=== PATIENT | female | born 1990 | race Caucasian/White ===

== ENCOUNTER → 2021-03-07 | Outpatient (CLI) | payer OTHER ==
[2021-03-07 17:53] LABS: HEMATOCRIT 39.1 % (36.0-47.0); HEMOGLOBIN 12.9 g/dl (12.0-15.5); MEAN CORPUSCULAR HEMOGLOBIN 30.3 pg (27.0-33.0); MEAN CORPUSCULAR VOLUME 91.8 fl (80.0-96.0); PLATELET COUNT, AUTOMATED 283 10^3/uL (150-450); RED BLOOD COUNT 4.26 10^6/uL (4.00-5.40)
[2021-03-07 19:24] LABS: GC DNA AMPLIFICATION NEGATIVE (NEGATIVE)
[2021-03-07 21:15] LABS: HEPATITIS C VIRUS ABY INDEX 0.1 INDEX (<0.8)
[2021-03-14 08:44] LABS: HIV 1&2 SCREEN CENTAUR REACTIVE (NEGATIVE)
== END ==
LOC: M PLALAB 15:44
PROVIDERS: ATTEND Advanced Practice Midwife
DX: Z34.81 Encounter for supervision of other normal pregnancy, first trimester (principal); Z3A.00 Weeks of gestation of pregnancy not specified
CPT/HCPCS: 36415; 85027; 86702; 86762; 86780; 86803; 86850; 86900; 86901; 87086; 87340; 87389; 87491; 87591; G0463

== ENCOUNTER → 2021-03-17 | Outpatient (CLI) | payer OTHER ==
--- NOTE | 2021-03-17 14:40 | REP ---
INDICATION: TWINS/DATING. COMPARISON: None. TECHNIQUE: Transabdominal imaging for a twin gestation. FINDINGS: Transabdominal imaging with the bladder is acoustic window shows a twin gestation. Gestational sac is in the body and fundus of the uterus with twin a presenting twin variable position and inferior. There is a yolk sac visible. Placenta is posterior grade 0. No previa. Visually amniotic fluid volume is normal. Thin membrane is identified. biometry: TWIN A: BPD: 2.1 cm, 13 week 2 day HC: 7.9 cm, 13 week 3 day AC: 5.9 cm, 12 week 5 day FL: 1 cm, 13 weeks 0 day HL: 1.1 cm, 13 week 0 day This gives average ultrasound age 13 weeks 1 day. heart rate 150 and regular. TWIN B: Twin B is variable in presentation and superior. A yolk sac is seen. There is an anterior placenta with grade 0 maturation. At placenta appears fused at the fundus and wraparound anterior to posterior. No previa. Thin membrane seen. Normal amniotic fluid volume. BPD: 2 cm, 13 week 1 day HC: 7.5 cm, 13 week 1 day AC: 5.8 cm, 12 week 5 day FL: 1.1 cm, 13 week 1 day HL: 1.1 cm, 12 weeks 6 day This gives average ultrasound age of 13 weeks. The heart rate 158 and regular The closed cervix is 3.9 cm. IMPRESSION: 1. Twin gestation with twin a variable position, inferior and twin B variable positions superior both with adequate amniotic fluid around the. There is a posterior placenta for twin A and anterior placenta for twin B which appears joined superiorly. Thin membrane is noted. Accordingly this is a monochorionic/diamniotic twin . 2. Twin A 13 weeks 1 day, twin B 13 weeks and by established the EDC she is 13 weeks with EDC 09/22/2021. <Electronically signed by Gunner Smith > 03/17/21 2024
== END ==
LOC: M WHC 12:40
PROVIDERS: ATTEND Advanced Practice Midwife
DX: O30.099 Twin pregnancy, unable to determine number of placenta and number of amniotic sacs, unspecified trimester (principal); Z3A.13 13 weeks gestation of pregnancy

== ENCOUNTER → 2021-04-06 | Outpatient (CLI) | payer OTHER | LOC: M WHC 10:09 | PROVIDERS: ATTEND Obstetrics & Gynecology | DX: O30.032 Twin pregnancy, monochorionic/diamniotic, second trimester (principal) ==

== ENCOUNTER → 2021-05-03 | Outpatient (CLI) | payer OTHER ==
--- NOTE | 2021-05-03 10:46 | REP ---
INDICATION: ANATOMY/TWINS COMPARISON: 03/17/2021 TECHNIQUE: Transabdominal obstetrical ultrasound with color Doppler evaluation. FINDINGS: Examination demonstrates monochorionic/diamniotic twin gestation. Cervix measures 3.6 cm in length and appears closed. Concordant growth is noted. Gestational age by LMP at 19 weeks 5 days with estimated date of delivery 09/22/2021. TWIN A: Twin A identified in cephalic presentation along the maternal left side. Placenta is noted posterior/right lateral and grade 0 without evidence for placenta previa or abruption. motion is appreciated. Amniotic fluid volume is normal. FHR equals 140 beats per minute. BPD: 4.7 cm corresponding to 20 weeks; 2 days HC: 17.5 cm corresponding to 20 weeks; 0 days AC: 14.0 cm corresponding to 19 weeks; 3 days FL: 3.3 cm corresponding to 20 weeks; 2 days HL: 3.1 cm corresponding to 20 weeks; 3 days HC/AC ratio: 1.25 Gestational age by current measurements: 20 weeks 0 days. Estimated weight 316 grams (52nd percentile). Limited anatomical assessment demonstrates small bilateral choroid plexus cysts and incomplete evaluation of the heart/ventricular outflow tracts. Remainder of the anatomical assessment is complete and normal. TWIN B: Twin B identified in breech presentation along the maternal right side. Placenta is noted posterior/right lateral and grade 0 without evidence for placenta previa or abruption. motion is appreciated. Amniotic fluid volume is normal. FHR equals 135 beats per minute. BPD: 4.5 cm corresponding to 19 weeks; 3 days HC: 17.1 cm corresponding to 19 weeks; 5 days AC: 14.1 cm corresponding to 19 weeks; 3 days FL: 3.1 cm corresponding to 19 weeks; 3 days HL: 3.2 cm corresponding to 20 weeks; 5 days HC/AC ratio: 1.21 Gestational age by current measurements: 19 weeks 5 days. Estimated weight 295 grams (33rd percentile). Limited anatomical assessment demonstrates small bilateral choroid plexus cysts. Remainder of the anatomical assessment is complete and normal. IMPRESSION: Monochorionic diamniotic twin gestation demonstrating appropriate concordant growth. Anatomical limitations as noted above may warrant follow-up. <Electronically signed by Daniel Irvin > 05/03/21 [id number]
== END ==
LOC: M WHC 08:26
PROVIDERS: ATTEND Obstetrics & Gynecology
DX: O30.032 Twin pregnancy, monochorionic/diamniotic, second trimester (principal)

== ENCOUNTER → 2021-06-02 | Outpatient (CLI) | payer OTHER ==
--- NOTE | 2021-06-02 15:44 | REP ---
INDICATION: F/U ANATOMY TWIN Twin gestation. COMPARISON: None. TECHNIQUE: Transabdominal obstetrical ultrasound with color Doppler evaluation. FINDINGS: Examination demonstrates monochorionic diamniotic twin gestation. Cervix measures 4.5 cm cm in length and appears closed. Gestational age by LMP at 24 weeks 0 days with estimated date of delivery 09/22/2021. TWIN A: Twin A identified in cephalic presentation along the maternal left side. Placenta is noted posterior/fundal and grade 0 without evidence for placenta previa or abruption. motion is appreciated. Amniotic fluid volume is normal and the deepest pocket measures 6.1 cm. FHR equals 174 beats per minute. BPD: 6.0 cm weeks; 24 weeks 3 days days HC: 22.6 cm weeks; 24 weeks 4 days days AC: 19.2 cm weeks; 24 weeks 0 days days FL: 4.5 cm weeks; 24 weeks 5 days days HL: 4.1 cm weeks; 25 weeks 0 days days HC/AC ratio: 1.17 Gestational age by current measurements: 24 weeks 4 days. Estimated weight 681 grams (55th percentile). Limited anatomical assessment demonstrates normal structures including heart/ventricular outflow tracts. Previous choroid plexus cyst has resolved. TWIN B: Twin B identified in breech presentation along the maternal right side. Placenta is noted posterior/fundal and grade 0 without evidence for placenta previa or abruption. motion is appreciated. Amniotic fluid volume is normal and the deepest pocket measures 5.2 cm. FHR equals 156 beats per minute. BPD: 5.8 cm weeks; 23 weeks 6 days days HC: 21.7 cm weeks; 23 weeks 5 days days AC: 19.5 cm weeks; 24 weeks 1 day days FL: 4.4 cm weeks; 24 weeks 4 days days HL: 4.2 cm weeks; 25 weeks 1 day days HC/AC ratio: 1.11 Gestational age by current measurements: 24 weeks 2 days. Estimated weight 675 grams (53rd percentile). Limited anatomical assessment demonstrates normal structures. Previous choroid plexus cyst has resolved. IMPRESSION: Monochorionic diamniotic twin gestation demonstrating appropriate concordant growth. No gross abnormalities are identified. <Electronically signed by Daniel Irivn > 06/02/21 0122
== END ==
LOC: M WHC 13:54
PROVIDERS: ATTEND Specialist
DX: O30.032 Twin pregnancy, monochorionic/diamniotic, second trimester (principal); Z3A.24 24 weeks gestation of pregnancy
CPT/HCPCS: 76812; 76816; 90471; 90686; G0463

== ENCOUNTER → 2021-06-15 | Outpatient (CLI) | payer OTHER ==
[2021-06-15 12:24] LABS: HEMATOCRIT 30.5 % (36.0-47.0); MEAN CORPUSCULAR HEMOGLOBIN 30.7 pg (27.0-33.0); MEAN CORPUSCULAR HGB CONC 32.8 g/dl (32.0-36.5); MEAN CORPUSCULAR VOLUME 93.6 fl (80.0-96.0); PLATELET COUNT, AUTOMATED 265 10^3/uL (150-450); RED BLOOD COUNT 3.26 10^6/uL (4.00-5.40); WHITE BLOOD COUNT 10.2 10^3/uL (4.0-10.0)
== END ==
LOC: M PLALAB 09:12
PROVIDERS: ATTEND Advanced Practice Midwife
DX: O30.032 Twin pregnancy, monochorionic/diamniotic, second trimester (principal); Z3A.00 Weeks of gestation of pregnancy not specified
CPT/HCPCS: 36415; 82950; 85027; 86850; 86900; 86901; G0463

== ENCOUNTER → 2021-07-05 | Outpatient (CLI) | payer OTHER ==
--- NOTE | 2021-07-05 11:12 | REP ---
INDICATION: GROWTH TWINS, SECOND TRIMESTER COMPARISON: 06/02/2021 FINDINGS: Examination demonstrates monochorionic diamniotic twin gestation. Cervix measures 4.0 cm in length and appears closed. Concordant growth is noted. Gestational age by LMP at 28 weeks 5 days with estimated date of delivery 09/22/2021. TWIN A: Twin A identified in cephalic presentation along the maternal left side. Placenta is noted posterior and grade 1 without evidence for placenta previa or abruption. motion is appreciated. Amniotic fluid volume is normal and the deepest pocket measures 5.3 cm. FHR equals 138 beats per minute. BPD: 7.7 cm weeks; 30 weeks 5 days days HC: 28.0 cm weeks; 30 weeks 4 days days AC: 25.5 cm weeks; 29 weeks 5 days days FL: 5.5 cm weeks; 29 weeks 0 days days HL: 4.9 cm weeks; 28 weeks 6 days days HC/AC ratio: 1.10 Gestational age by current measurements: 29 weeks 6 days. Estimated weight 1428 grams (72nd percentile). Limited anatomical assessment without obvious abnormality. TWIN B: Twin B identified in breech presentation along the maternal right side. Placenta is noted posterior and grade 1 without evidence for placenta previa or abruption. motion is appreciated. Amniotic fluid volume is normal and the deepest pocket measures 4.6 cm. FHR equals 127 beats per minute. BPD: 7.0 cm weeks; 28 weeks 0 days days HC: 26.4 cm weeks; 28 weeks 5 days days AC: 25.9 cm weeks; 30 weeks 1 day days FL: 5.4 cm weeks; 28 weeks 5 days days HL: 5.0 cm weeks; 29 weeks 2 days days HC/AC ratio: 1.02 Gestational age by current measurements: 29 weeks 0 days. Estimated weight 1378 grams (61st percentile). Limited anatomical assessment without obvious abnormality. IMPRESSION: Monochorionic-diamniotic twin gestation demonstrating appropriate concordant growth. No gross abnormalities are identified. <Electronically signed by Daniel Irvin > 07/05/21 [id number]
== END ==
LOC: M WHC 09:23
PROVIDERS: ATTEND Advanced Practice Midwife
DX: Z36.9 Encounter for antenatal screening, unspecified (principal); O30.032 Twin pregnancy, monochorionic/diamniotic, second trimester; Z3A.29 29 weeks gestation of pregnancy

== ENCOUNTER → 2021-07-26 | Outpatient (CLI) | payer OTHER ==
--- NOTE | 2021-07-26 13:49 | REP ---
INDICATION: GROWTH TWINS COMPARISON: 07/05/2021 TECHNIQUE: Transabdominal obstetrical ultrasound with color Doppler evaluation. FINDINGS: Examination demonstrates monochorionic-diamniotic live intrauterine . Selected gestational age: 31 weeks 5 days with estimated date of delivery 09/22/2021. Cervix appears closed. TWIN A: Cephalic presentation towards left side of the uterus. heart rate equals 130 beats per minute. Placenta noted posteriorly. Amniotic fluid volume deepest pocket: 6.8 cm Estimated weight by biometric measurements 1852 g 43rd percentile Biophysical profile score: 8/8 Umbilical artery SD ratio: 3.53 (1.86-3.90) TWIN B: Cephalic towards right side of the uterus. heart rate equals 144 beats per minute. Placenta noted posterior. Amniotic fluid volume deepest pocket: 5.2 cm Estimated weight by biometric measurements 1737 g 26 percentile Biophysical profile score: 8/8 Umbilical artery SD ratio: 3.53 (1.86-3.90) IMPRESSION: Twin gestation demonstrating appropriate concordant interval growth. No gross abnormalities are identified. Biophysical profile score is 8/8 for both fetuses. <Electronically signed by Daniel Irvin > 07/26/21 [id number]
== END ==
LOC: M WHC 09:20
PROVIDERS: ATTEND Advanced Practice Midwife
DX: O30.032 Twin pregnancy, monochorionic/diamniotic, second trimester (principal)

== ENCOUNTER 2021-08-05 15:26 | Inpatient (IN) | payer OTHER ==
[~2021-08-05] VITALS: Ht 162.6 cm; Wt 73.6 kg
[2021-08-05] MEDS ORDERED: LIDOCAINE 2% 100MG/5ML SDV (FOR ANES.) As Ordered ONE (15:47)
[2021-08-05] MEDS ORDERED: propofoL 200 MG/20 ML VIAL As Ordered ONE ×2 (15:47→16:12)
[2021-08-05] MEDS ORDERED: MIDAZOLAM INJ 2MG/2ML VIAL (J2250 PER 1MG) As Ordered ONE (15:47)
[2021-08-05] MEDS ORDERED: fentaNYL 100 MCG/2 ML INJECTION As Ordered ONE (15:47)
[2021-08-05] MEDS ORDERED: OXYTOCIN INJ 10 UNITS/ML VIAL (J2590) As Ordered ONE (15:47)
[2021-08-05] MEDS ORDERED: SUCCINYLCHOLINE 100 MG/5 ML SYRINGE (J0330) As Ordered ONE (15:47)
[2021-08-05] MEDS ORDERED: ONDANSETRON 4MG/2ML VIAL As Ordered ONE (15:48)
[2021-08-05] MEDS ORDERED: dexameTHASONE 4 MG/ML 1ML VIAL (J1100 PER 1MG) As Ordered ONE (15:48)
[2021-08-05] MEDS ORDERED: ROCURONIUM BROMIDE 50 MG/5 ML VIAL As Ordered ONE (15:50)
[2021-08-05] MEDS ORDERED: CLINDAMYCIN 900 MG/50 ML PREMIX BAG As Ordered ONE (15:50)
[2021-08-05] MEDS ORDERED: ACETAMINOPHEN 1000MG 100ML IV BTL (OFIRMEV) (J0131 PER 10MG) As Ordered ONE (16:03)
[2021-08-05] MEDS ORDERED: BUPIVACAINE HCL 0.25% 10ML VIAL As Ordered ONE (16:04)
[2021-08-05] MEDS ORDERED: KETOROLAC 60MG 2ML VIAL As Ordered ONE (16:04)
[2021-08-05] MEDS ORDERED: SUGAMMADEX SODIUM 500 MG/5 ML VIAL (BRIDION) As Ordered ONE (16:09)
[2021-08-05 16:13] LABS: CORD GAS HCO3 V 25.8 MEQ/L; CORD GAS O2 SAT V 64.7 %; CORD GAS PCO2 V 49.2 mmHg; CORD GAS PH V 7.337 UNITS; CORD GAS SBC V 22.5 MEQ/L; CORD GAS TCO2 V 27.3 MEQ/L
[2021-08-05 16:14] LABS: CORD GAS ABE A -2.5; CORD GAS HCO3 A 24.5 MEQ/L; CORD GAS O2 SAT A 64.4 %; CORD GAS PCO2 A 49.3 mmHg; CORD GAS PH A 7.314 UNITS; CORD GAS PO2 A 26.7 mmHg; CORD GAS SBC A 21.3 MEQ/L
[2021-08-05] MEDS ORDERED: KETOROLAC 30 MG/ML 1ML VIAL IV PRN (16:18)
[2021-08-05] MEDS ORDERED: OXYTOCIN 30 UNITS IN 0.9% NaCl 500ML IV BAG (J2590) As Ordered ONE (16:39)
[2021-08-05] MEDS ORDERED: METOCLOPRAMIDE INJ 10MG/2ML VIAL (J2765 PER 1) As Ordered ONE (16:43)
[2021-08-05] MEDS ORDERED: HYDROMORPHONE HCL 0.5 MG/ 0.5 ML SYRINGE (J1170 PER 1) As Ordered ONE ×2 (16:55→17:18)
[2021-08-05] MEDS ORDERED: SIMETHICONE 80MG CHEW TAB PO PRN (17:20)
[2021-08-05] MEDS ORDERED: MEASLES,MUMPS,RUBELLA VACCINE INJ (MMR-II) (90707) SC SCH (17:20)
[2021-08-05] MEDS ORDERED: fentaNYL 100 MCG/2 ML INJECTION IV PRN (17:20)
[2021-08-05] MEDS ORDERED: NS 1,000 ML IV SCH (17:20)
[2021-08-05] MEDS ORDERED: TRANEXAMIC ACID INJection 1,000 MG in NS 100 ML IV PRN (17:20)
[2021-08-05] MEDS ORDERED: METHYLERGONOVINE MALEATE 0.2 MG/ML VIAL (J2210) IM PRN (17:20)
[2021-08-05] MEDS ORDERED: oxyCODONE 5MG TAB PO PRN (17:20)
[2021-08-05] MEDS ORDERED: MORPHINE 1MG/ML IN 0.9% NACL 100ML IV BAG IV PRN (17:20)
[2021-08-05] MEDS ORDERED: RHOGAM 300 MCG (1500 IU) INJ (J2790) IM SCH (17:20)
[2021-08-05] MEDS ORDERED: ACETAMINOPHEN 500 MG TAB PO PRN (17:20)
[2021-08-05] MEDS ORDERED: OXYTOCIN DRIP 30 UNITS in IV 1 EA IV SCH (17:20)
[2021-08-05] MEDS ORDERED: ONDANSETRON 4MG/2ML VIAL IV PRN (17:20)
[2021-08-05] MEDS ORDERED: NALOXONE INJ 0.4MG/1ML VIAL (J2310 PER 1MG) IV PRN (17:20)
[2021-08-05] MEDS ORDERED: EPIDURAL/PCA KEYS XX PRN (17:20)
[2021-08-05] MEDS ORDERED: diphenhydrAMINE 50MG/ML VIAL (J1200) IV PRN (17:20)
[2021-08-05 18:15] LABS: CORD GAS ABE A -18.1; CORD GAS HCO3 A 11.4 MEQ/L; CORD GAS HCO3 V 18.6 MEQ/L; CORD GAS O2 SAT A 97.3 %; CORD GAS O2 SAT V 99.7 %; CORD GAS PCO2 A 47.7 mmHg; CORD GAS PO2 A 108.6 mmHg; CORD GAS PO2 V 208.5 mmHg; CORD GAS SBC A 10.1 MEQ/L; CORD GAS SBC V 18.6 MEQ/L; CORD GAS TCO2 A 12.9 MEQ/L; CORD GAS TCO2 V 19.8 MEQ/L
[2021-08-05 18:16] LABS: CORD GAS PH A 6.998 UNITS
[2021-08-05 18:17] LABS: CORD GAS PH V 7.308 UNITS
[2021-08-05 19:05] VITALS: BP 131/73
[2021-08-05 19:35] VITALS: BP 117/65
[2021-08-05 21:35] VITALS: BP 117/67
[2021-08-05] MEDS: DOCUSATE SODIUM 100MG CAPSULE PO SCH (21:59)
[2021-08-05] MEDS: KETOROLAC 30 MG/ML 1ML VIAL IV SCH (22:02)
[2021-08-05] MEDS: ceFAZolin SOD 2 GM in IV 1 EA IV SCH (22:02)
[2021-08-05 22:35] VITALS: BP 120/64
[2021-08-05 23:35] VITALS: BP 117/66
[2021-08-06 00:35] VITALS: BP 112/64
[2021-08-06 02:00] VITALS: BP 110/60
[2021-08-06] MEDS: KETOROLAC 30 MG/ML 1ML VIAL IV SCH ×2 (03:56→09:58)
[2021-08-06 06:00] VITALS: BP 107/60
[2021-08-06] MEDS: ceFAZolin SOD 2 GM in IV 1 EA IV SCH ×2 (06:06→13:52)
[2021-08-06] MEDS: DOCUSATE SODIUM 100MG CAPSULE PO SCH ×2 (08:41→21:58)
[2021-08-06] MEDS: PRENATAL VITAMINS CHEWABLE TABLET PO SCH (08:42)
[2021-08-06 08:43] LABS: HEMATOCRIT 28.5 % (36.0-47.0); HEMOGLOBIN 9.4 g/dl (12.0-15.5); MEAN CORPUSCULAR HEMOGLOBIN 31.6 pg (27.0-33.0); PLATELET COUNT, AUTOMATED 191 10^3/uL (150-450); RED BLOOD COUNT 2.97 10^6/uL (4.00-5.40); WHITE BLOOD COUNT 14.4 10^3/uL (4.0-10.0)
[2021-08-06 10:00] VITALS: BP 126/77
[2021-08-06] MEDS: ONDANSETRON 4MG/2ML VIAL IV PRN ×2 (11:24→20:39)
[2021-08-06 12:23] LABS: THYROID STIMULATING HORMONE 4.13 uIU/ML (0.358-3.740); THYROXINE (T4) 15.9 UG/DL (4.5-12.0)
[2021-08-06] MEDS: PERCOCET 5MG/325MG TAB PO PRN ×2 (13:26→20:51)
[2021-08-06] MEDS: IBUPROFEN 800 MG TAB PO SCH (17:52)
[2021-08-06 18:02] VITALS: BP 123/76
[2021-08-06 22:00] VITALS: BP 127/70
[2021-08-06] MEDS ORDERED: ceFAZolin SOD 2 GM in IV 1 EA IV ONE (22:00)
[2021-08-07 02:00] VITALS: BP 136/84
[2021-08-07] MEDS: IBUPROFEN 800 MG TAB PO SCH ×2 (02:15→09:30)
[2021-08-07] MEDS: PERCOCET 5MG/325MG TAB PO PRN ×2 (03:18→12:14)
[2021-08-07 06:00] VITALS: BP 127/74
[2021-08-07] MEDS: PRENATAL VITAMINS CHEWABLE TABLET PO SCH (08:58)
[2021-08-07] MEDS: DOCUSATE SODIUM 100MG CAPSULE PO SCH (08:58)
[2021-08-07 10:00] VITALS: BP 129/73
[2021-08-07] MEDS: ONDANSETRON 4MG/2ML VIAL IV PRN (12:14)
[2021-08-07] MEDS ORDERED: PERCOCET PO (14:14)
[2021-08-07] MEDS ORDERED: IBUP80TA PO (14:14)
[2021-08-07] MEDS ORDERED: COLA100C5 PO (14:14)
[2021-08-07] MEDS ORDERED: ZOFR4TAB16 PO (14:14)
[2021-08-10 11:35] LABS: DRVV SCREEN 38.6 SEC
[2021-08-10 18:07] LABS: ANTI PARVO VIRUS LEVEL IGG 6.3 index (0.0-0.8); ANTI PARVO VIRUS LEVEL IgM 0.1 index (0.0-0.8); BETA-2 GLYCOPROTEIN I ABY IGA <9 (0-25); BETA-2 GLYCOPROTEIN I ABY IGG <9 (0-20); BETA-2 GLYCOPROTEIN I ABY IGM <9 (0-32); CARDIOLIPIN IGA ANTIBODY <9 APL U/mL (0-11); CARDIOLIPIN IGG ANTIBODY <9 GPL U/mL (0-14); CARDIOLIPIN IGM ANTIBODY 18 MPL U/mL (0-12); HERPES ZOSTER, VARICELLA IgG 1057 index (Immune >165); HERPES ZOSTER, VARICELLA IgM <0.91 index (0.00-0.90)
== END 2021-08-07 17:52 | disposition home or self-care (01) | DRG 773 ==
LOC: M LDO 15:26 → M LDI 15:37 → M OBS 19:00
PROVIDERS: ADMIT Advanced Practice Midwife; ATTEND Obstetrics & Gynecology
PROC: 10D00Z1 Extraction of Products of Conception, Low, Open Approach (ICD-10-PCS; principal; 2021-08-05 15:40)
DX: O30.033 Twin pregnancy, monochorionic/diamniotic, third trimester (principal); Z3A.33 33 weeks gestation of pregnancy; Z37.3 Twins, one liveborn and one stillborn; O76 Abnormality in fetal heart rate and rhythm complicating labor and delivery

== ENCOUNTER 2021-08-13 17:00 | Emergency (ER) | payer OTHER ==
[~2021-08-13] VITALS: Ht 162.6 cm; Wt 65.8 kg
[~2021-08-13 17:00] MED LIST: COLA100C5 PO; IBUP80TA PO; PERCOCET PO; ZOFR4TAB16 PO
[2021-08-13] MEDS ORDERED: ACET325C5 PO (17:15)
[2021-08-13] MEDS ORDERED: diphenhydrAMINE 50MG/ML VIAL (J1200) IV STA (17:29)
[2021-08-13] MEDS ORDERED: NS 1,000 ML IV ONE (17:30)
[2021-08-13] MEDS ORDERED: METOCLOPRAMIDE INJ 10MG/2ML VIAL (J2765 PER 1) IV ONE (17:30)
[2021-08-13] MEDS ORDERED: ACETAMINOPHEN TAB 650MG DOSE (2X325MG) PO ONE (17:35)
[2021-08-13 18:06] LABS: BASO % 0.4 % (0.0-1.0); EOS # 0.2 10^3/uL (0.0-0.5); EOS % 1.7 % (0.0-3.0); HEMATOCRIT 40.8 % (36.0-47.0); HEMOGLOBIN 13.4 g/dl (12.0-15.5); LYMPH # 2.6 10^3/uL (1.5-5.0); LYMPH % 24.9 % (24.0-44.0); MEAN CORPUSCULAR HEMOGLOBIN 31.5 pg (27.0-33.0); MEAN CORPUSCULAR HGB CONC 32.8 g/dl (32.0-36.5); MEAN CORPUSCULAR VOLUME 95.8 fl (80.0-96.0); MONO # 0.6 10^3/uL (0.0-0.8); MONO % 5.6 % (2.0-8.0); NEUTROPHILS # 7.1 10^3/uL (1.5-8.5); NEUTROPHILS % 66.7 % (36.0-66.0); PLATELET COUNT, AUTOMATED 415 10^3/uL (150-450); RED BLOOD COUNT 4.26 10^6/uL (4.00-5.40); WHITE BLOOD COUNT 10.6 10^3/uL (4.0-10.0)
[2021-08-13 18:15] LABS: APPEARANCE, URINE CLEAR (CLEAR); BACTERIA, URINE AUTO NEGATIVE (NEGATIVE); BILIRUBIN, URINE AUTO NEGATIVE (NEGATIVE); BLOOD, URINE BLOOD 2+ (NEGATIVE); COLOR, URINE YELLOW (YELLOW); GLUCOSE, URINE (UA) AUTO NEGATIVE (NEGATIVE); KETONE, URINE AUTO 1+ mg/dL (NEGATIVE); LEUKOCYTE ESTERASE, URINE AUTO NEGATIVE (NEGATIVE); NITRITE, URINE AUTO NEGATIVE (NEGATIVE); PROTEIN, URINE AUTO NEGATIVE (NEGATIVE); RBC, URINE AUTO 1 /HPF (0-3); SPECIFIC GRAVITY URINE AUTO 1.012 (1.002-1.035); SQUAMOUS EPITHELIAL CELL UR AU 0 /HPF (0-6); UROBILINOGEN, URINE AUTO 0.2 mg/dL (0.0-2.0); WBC, URINE AUTO 0 /HPF (0-3)
[2021-08-13 18:31] LABS: ALBUMIN 3.3 GM/DL (3.2-5.2); ALT/SGPT 30 U/L (12-78); BILIRUBIN,TOTAL 0.3 MG/DL (0.2-1.0); BLOOD UREA NITROGEN 11 MG/DL (7-18); CALCIUM LEVEL 8.7 MG/DL (8.5-10.1); CARBON DIOXIDE LEVEL 25 MEQ/L (21-32); CHLORIDE LEVEL 110 MEQ/L (98-107); CREATININE FOR GFR 0.54 MG/DL (0.55-1.30); GLOMERULAR FILTRATION RATE > 60.0 (>60); GLUCOSE, FASTING 82 MG/DL (70-100); POTASSIUM SERUM 3.6 MEQ/L (3.5-5.1); SODIUM LEVEL 143 MEQ/L (136-145); TOTAL PROTEIN 6.8 GM/DL (6.4-8.2)
[2021-08-13 18:47] VITALS: BP 124/77
[2021-08-13] MEDS ORDERED: KETOROLAC 30 MG/ML 1ML VIAL IV ONE (18:50)
== END 2021-08-13 20:18 | disposition home or self-care (01) ==
LOC: M ED 17:00
DX: O99.893 Other specified diseases and conditions complicating puerperium (principal); G44.89 Other headache syndrome; Z88.0 Allergy status to penicillin
CPT/HCPCS: 80053; 81001; 85025; 96361; 96374; 96375; 99284; J1200; J1885; J2765